=== PATIENT | female | born 1995 | race Hispanic/Latino ===

== ENCOUNTER 2021-04-03 11:51 | Inpatient (IN) | payer OTHER ==
[~2021-04-03] VITALS: Ht 160 cm; Wt 66.2 kg
--- NOTE | 2021-04-04 04:22 | NUR ---
0055 04-04-2021 COVID swab obtained and taken to lab.
--- NOTE | 2021-04-04 10:21 | PR ---
[facility] [address] [facility] [place], [place] [address] Signed Progress Notes IP Datetime Report Generated by CPN: 04/04/2021 10:21 PROGRESS NOTES: [id number] Impression: Normal Progression of Labor Procedures: Artificial ROM Plan: Continue Present Management; Anticipate Vaginal Delivery VITAL SIGNS: [id number] Vital Signs: Reviewed; Within Normal Limits EXAM: [id number] Dilatation: 10.0 Effacement: 100 Station: 0 MEMBRANES: [id number] Membranes Status: Ruptured ROM Note: By Dr. Olson Comments: Comfortable with Epidural. Will start pushing soon. FETUS A: [id number] FHR Baseline: 145 Variability: Moderate 6-25bpm Accelerations: 15X15 FETUS B: [id number] Signing Physician: Yuri Olson MD Copies: ~ *Electronically Signed* 04/04/21 1021 YURI OLSON MD PATIENT NAME: SHARRI SALAZAR PROGRESS NOTE DATE OF : 95 PHYSICIAN: YURI OLSON MD RPT #: [id number] REPORT IS CONFIDENTIAL AND NOT TO BE RELEASED WITHOUT AUTHORIZATION
--- NOTE | 2021-04-04 18:37 | PR ---
[facility] [address] [facility] [place], [place] [address] Signed PP Progress Notes Datetime Report Generated by CPN: 04/04/2021 18:36 SUBJECTIVE: [id number] Pain: Within Normal Limits Nausea/Vomiting: Denies Vital Signs: [id number] Vital Signs: Reviewed; Within Normal Limits Notable Details: PT slightly high, PT normal Hgb/Hct = 7.8/24.8 before transfusion Abdomen/Uterus: Normal Lochia: Normal Extremities: Normal IMPRESSION/PLAN/PROCEDURES: [id number] Impression: Normal Progression Other Impression: PP Hemorrhage Plan: Continue Present Management Procedures: None Progress Notes: Feeling much better, minimal vaginal bleeding. Received 1 unit PRBC's this afternoon. Will recheck CBC, PT, PTT, Fibrinogen tomorrow morning. Discussed symptoms, treatmetn, follow-up with patient. Questions answered. Signing Physician: Luis Olson MD Copies: ~ *Electronically Signed* 04/04/21 1836 LUIS OLSON MD PATIENT NAME: YANETH SALAZARICA PROGRESS NOTE DATE OF : 95 PHYSICIAN: LUIS OLSON MD RPT #: [id number] REPORT IS CONFIDENTIAL AND NOT TO BE RELEASED WITHOUT AUTHORIZATION
--- NOTE | 2021-04-05 12:20 | PR ---
[facility] [address] [place], [place] [address] Signed PP Progress Notes Datetime Report Generated by CPN: 04/05/2021 12:20 SUBJECTIVE: [id number] Pain: Within Normal Limits Nausea/Vomiting: Denies Bowel Movement: No Vital Signs: [id number] Vital Signs: Reviewed; Within Normal Limits Notable Details: PT slightly high, PT normal Hgb/Hct = 7.8/24.8 before transfusion Cardiovascular: Normal Respiratory: Normal Abdomen/Uterus: Normal Lochia: Normal CVA Tenderness: Normal Extremities: Normal Incision: Not Applicable Progress: Normal Exam Comments: Fundus firm U-2 Nontender IMPRESSION/PLAN/PROCEDURES: [id number] Impression: Normal Progression Other Impression: PP Hemorrhage Plan: Continue Present Management Procedures: None Other Procedures: s/p PRBC x 1 unit Progress Notes: Pt seen and examined. Doing well. Voiding and tolerating full diet. Dizziness w/ ambulation this morning. well. Lochia minimal. Hgb 7.4 after 1 u PRBC and pt reports feeling much better. Will slowly ambulate w/ assistanceand monitor bleeding closely, but anticipate normal recovery. Anticipate discharge home tomorrow. Signing Physician: Kathleen Singh DO Copies: ~ *Electronically Signed* 04/05/21 2560 KATHLEEN SINGH DO PATIENT NAME: SHARRI SALAZAR PROGRESS NOTE DATE OF : 95 PHYSICIAN: KATHLEEN SINGH DO RPT #: [id number] REPORT IS CONFIDENTIAL AND NOT TO BE RELEASED WITHOUT AUTHORIZATION
--- NOTE | 2021-04-06 08:47 | PR ---
[facility] [address] [place], [place] [address] Signed PP Progress Notes Datetime Report Generated by ELEAZAR: 04/06/2021 08:47 SUBJECTIVE: [id number] Pain: Within Normal Limits Nausea/Vomiting: Denies Flatus: Yes Bowel Movement: Yes Vital Signs: [id number] Vital Signs: Reviewed; Within Normal Limits Notable Details: PT slightly high, PT normal Hgb/Hct = 7.8/24.8 before transfusion Cardiovascular: Normal Respiratory: Normal Abdomen/Uterus: Normal Lochia: Normal CVA Tenderness: Normal Extremities: Normal Incision: Not Applicable Progress: Normal Exam Comments: Gen: NAD, sitting comfortably in bed Resp: no dyspnea, no retractions CV: RRR, radial pulses strong bilaterally, no pallor, capillary refill time < 1 second Abd: SNTND, FFBU Ext: no edema, neg Joanne's BL IMPRESSION/PLAN/PROCEDURES: [id number] Impression: Normal Progression Other Impression: PP Hemorrhage Plan: Continue Present Management Procedures: None Other Procedures: s/p PRBC x 1 unit Progress Notes: 26 yo PPD#2 s/p complicated by hemorrhage requiring transfusion 1 unit pRBC -VSS, asymptomatic, no dizziness/lightheadedness/headache/ shortness of breath. Hgb 7.4 following transfusion, repeat hgb this am is pending at this time -Otherwise progressing well : ambulating, voiding, tolerating regular diet, +flatus, +BM. Pumping and bottlefeeding baby due to nipple sensitivity, planning to transition to when nipple sensitivity resolved. -Requesting DC to home today, planning natural family planning for contraception. *Electronically Signed* 04/06/21846 MIGUEL A ALMAGUER DO PATIENT NAME: YANETH SALAZARICA PROGRESS NOTE DATE OF : 95 PHYSICIAN: MIGUEL A ALMAGUER DO RPT #: [id number] REPORT IS CONFIDENTIAL AND NOT TO BE RELEASED WITHOUT AUTHORIZATION [address] [place], [place] [address] Signed Anticipate DC today, pending hemogram results. Discussed possibility of additional blood transfusion or iron infusion. Signing Physician: Miguel A Almaguer DO Copies: ~ *Electronically Signed* 04/06/21846 MIGUEL A ALMAGUER DO PATIENT NAME: MARJORIE MEJIASHARRI PROGRESS NOTE DATE OF : 95 PHYSICIAN: MIGUEL A ALMAGUER DO [facility] #: [id number] REPORT IS CONFIDENTIAL AND NOT TO BE RELEASED WITHOUT AUTHORIZATION
== END 2021-04-06 12:45 | disposition home or self-care (01) | DRG 806 ==
LOC: FBC 04-04 00:19
PROVIDERS: ADMIT General Practice; ATTEND General Practice
PROC: 10E0XZZ Delivery of Products of Conception, External Approach (ICD-10-PCS; principal; 2021-04-04)
PROC: 0KQM0ZZ Repair Perineum Muscle, Open Approach (ICD-10-PCS; 2021-04-04)
PROC: 10907ZC Drainage of Amniotic Fluid, Therapeutic from Products of Conception, Via Natural or Artificial Opening (ICD-10-PCS; 2021-04-04)
PROC: 3E0DXGC Introduction of Other Therapeutic Substance into Mouth and Pharynx, External Approach (ICD-10-PCS; 2021-04-04)
PROC: 3E0R3BZ Introduction of Anesthetic Agent into Spinal Canal, Percutaneous Approach (ICD-10-PCS; 2021-04-04)
PROC: 00HU33Z Insertion of Infusion Device into Spinal Canal, Percutaneous Approach (ICD-10-PCS; 2021-04-04)
PROC: 30233N1 Transfusion of Nonautologous Red Blood Cells into Peripheral Vein, Percutaneous Approach (ICD-10-PCS; 2021-04-04)
DX: O99.02 Anemia complicating childbirth (principal); D62 Acute posthemorrhagic anemia; Z37.0 Single live birth; O72.1 Other immediate postpartum hemorrhage; O70.1 Second degree perineal laceration during delivery; Z3A.39 39 weeks gestation of pregnancy
CPT/HCPCS: 01960; 36430; 85025; 85027; 85384; 85610; 85730; 86850; 86900; 86901; 86922; A9270; C9803; J2590; J2795; J3010; J7121; P9016; U0003

== ENCOUNTER 2022-12-15 09:28 | Inpatient (IN) | payer OTHER ==
[~2022-12-15] VITALS: Ht 160 cm; Wt 65.8 kg
[2022-12-15 10:41] VITALS: BP 107/62
--- NOTE | 2022-12-15 16:34 | PR ---
[facility] [address] [facility] [place], [place] [address] Signed Progress Notes IP Datetime Report Generated by CPN: 12/15/2022 16:34 PROGRESS NOTES: [id number] Procedures: Epidural Placement Plan: Anesthesia Consult VITAL SIGNS: [id number] EXAM: [id number] Dilatation: 5.0 Effacement: 80 Station: -2 Contractions: acontractile MEMBRANES: [id number] Nitrazine: Positive Comments: Breathing through contractions, requesting epidural, anesthesia here Pitocin discontinued, anesthesia present for epidural FETUS A: [id number] FHR Baseline: 135 Variability: Moderate 6-25bpm Accelerations: 15X15 Decelerations: None FHR Category: Category I Presentation: Vertex Comments on Fetus A: No evidence of acidemia FETUS B: [id number] Signing Physician: Miguel A Almaguer DO Copies: ~ *Electronically Signed* 12/15/22 1634 MIGUEL A ALMAGUER DO PATIENT NAME: SHARRI OROZCO PROGRESS NOTE DATE OF : 95 PHYSICIAN: MIGUEL A ALMAGUER DO [facility] #: [id number] REPORT IS CONFIDENTIAL AND NOT TO BE RELEASED WITHOUT AUTHORIZATION
--- NOTE | 2022-12-15 18:34 | PR ---
[facility] [address] [place], [place] [address] Signed Progress Notes IP Datetime Report Generated by CPN: 12/15/2022 18:34 PROGRESS NOTES: [id number] Impression: Normal Progression of Labor; Reassuring Heart Rate Procedures: Epidural Placement Plan: Anesthesia Consult VITAL SIGNS: [id number] EXAM: [id number] Dilatation: 8.0 Effacement: 95 Station: -1 Contractions: acontractile MEMBRANES: [id number] Nitrazine: Positive Membranes Status: Ruptured Comments: Pt comfortable with epidural, denies feeling contractions. Complaining of nausea, symptomatic hypotension responsive to ephedrine. Forebag ruptured without difficulty yielding clear blood-stained fluid. head well-applied to cervix, anticipate . FETUS A: [id number] FHR Baseline: 135 Variability: Moderate 6-25bpm Accelerations: 15X15 Decelerations: None FHR Category: Category I Presentation: Vertex Comments on Fetus A: No evidence of acidemia FETUS B: [id number] Signing Physician: Miguel A Almaguer DO Copies: ~ *Electronically Signed* 12/15/22 1834 MIGUEL A ALMAGUER DO PATIENT NAME: SHARRI OROZCO PROGRESS NOTE DATE OF : 95 PHYSICIAN: MIGUEL A ALMAGUER DO [facility] #: [id number] REPORT IS CONFIDENTIAL AND NOT TO BE RELEASED WITHOUT AUTHORIZATION
--- NOTE | 2022-12-16 11:11 | PR ---
[facility] [address] [place], [place] [address] Signed PP Progress Notes Datetime Report Generated by CPWendie: 12/16/2022 11:11 SUBJECTIVE: [id number] Pain: Within Normal Limits Nausea/Vomiting: Denies Vital Signs: [id number] Vital Signs: Reviewed; Within Normal Limits Cardiovascular: Normal Respiratory: Normal Abdomen/Uterus: Normal Lochia: Normal Extremities: Normal Progress: Normal Exam Comments: Pt resting in bed RRR No dyspnea/ retractions Abd SNTND, FFBU Ext: trace edema, neg Joanne's BL IMPRESSION/PLAN/PROCEDURES: [id number] Impression: Normal Progression Plan: Continue Present Management Other Procedures: Iron infusion Progress Notes: Pt is a 27 yo PPD#1 s/p Acute blood loss anemia on chronic anemia of , hemorrhage of 2000mL -source: vaginal laceration, repair complicated by profound edema -received TXA 1g immediately after cord cut due to h/o PPH, then additional 30 units pitocin -received 2 units pRBC -initial fibrinogen 275, other coags within normal limits and hgb 7.1 at time of hemorrhage -this am, fibrinogen 303, PT slightly elevated at 14.7 but other coags WNL -VSS this am, pt reports ear ringing/ near syncope with attempt at ambulation -UOP adequate last night and today, martinez catheter still in place -plan: IV iron infusion today, continue attempts at ambulation with assistance Anticipate DC to home tomorrow Signing Physician: Miguel A Almaguer DO *Electronically Signed* 12/16/22 1111 MIGUEL A ALMAGUER DO PATIENT NAME: YANETH OROZCOICA PROGRESS NOTE DATE OF : 95 PHYSICIAN: MIGUEL A ALMAGUER DO RPT #: [id number] REPORT IS CONFIDENTIAL AND NOT TO BE RELEASED WITHOUT AUTHORIZATION [address] [place] [address] Signed Copies: ~ *Electronically Signed* 12/16/22 1111 MIGUEL A ALMAGUER DO PATIENT NAME: YANETH OROZCOICA PROGRESS NOTE DATE OF : 95 PHYSICIAN: MIGUEL A ALMAGUER DO RPT #: [id number] REPORT IS CONFIDENTIAL AND NOT TO BE RELEASED WITHOUT AUTHORIZATION
--- NOTE | 2022-12-17 10:19 | PR ---
[facility] [address] [place], [place] [address] Signed PP Progress Notes Datetime Report Generated by CPWendie: 12/17/2022 10:19 SUBJECTIVE: [id number] Pain: Within Normal Limits Nausea/Vomiting: Denies Flatus: Yes Vital Signs: [id number] Vital Signs: Reviewed; Within Normal Limits Cardiovascular: Normal Respiratory: Normal Abdomen/Uterus: Normal Lochia: Normal Extremities: Normal Progress: Normal Exam Comments: Lying in bed RRR No dyspnea, retractions Abd SNTND, FFBU Ext: trace edema, neg Joanne's BL, SCDs in place IMPRESSION/PLAN/PROCEDURES: [id number] Impression: Pain Plan: Continue Present Management Other Plans: DC martinez Other Procedures: Iron infusion Progress Notes: 27 yo PPD#2 s/p complicated by PPH 2000mL -pt reports dizziness with attempts at ambulation, has not tried sitting at chair at bedside -stressed importance of attempts at ambulation and need to discontinue martinez today -anticipate DC to home tomorrow, pt not yet ambulating or voiding. Signing Physician: Miguel A Almaguer DO Copies: ~ *Electronically Signed* 12/17/22 1019 MIGUEL A ALMAGUER DO PATIENT NAME: SHARRI OROZCO PROGRESS NOTE DATE OF : 95 PHYSICIAN: MIGUEL A ALMAGUER DO RPT #: [id number] REPORT IS CONFIDENTIAL AND NOT TO BE RELEASED WITHOUT AUTHORIZATION
--- NOTE | 2022-12-18 09:21 | PR ---
[facility] [address] [facility] [place], [place] [address] Signed PP Progress Notes Datetime Report Generated by CPN: 12/18/2022 09:21 SUBJECTIVE: [id number] Pain: Within Normal Limits Nausea/Vomiting: Denies Flatus: Yes Bowel Movement: No Vital Signs: [id number] Vital Signs: Reviewed; Within Normal Limits Cardiovascular: Normal Respiratory: Normal Abdomen/Uterus: Normal Lochia: Normal Extremities: Normal Progress: Normal Exam Comments: NAD, lying in bed FFBU Extremities: trace edema IMPRESSION/PLAN/PROCEDURES: [id number] Impression: Normal Progression Plan: Discharge Other Plans: DC martinez Other Procedures: Iron infusion Progress Notes: PPD#3 s/p complicated by PPH -s/p 2 units pRBC, IV iron infusion, home on oral iron -ambulating, voiding, tolerating regular diet -planning partner vasectomy for contraception - baby Anticipate DC to home today. Signing Physician: Miguel A Almaguer DO Copies: ~ *Electronically Signed* 12/18/22920 MIGUEL A ALMAGUER DO PATIENT NAME: SHARRI OROZCO PROGRESS NOTE DATE OF : 95 PHYSICIAN: MIGUEL A ALMAGUER DO RPT #: [id number] REPORT IS CONFIDENTIAL AND NOT TO BE RELEASED WITHOUT AUTHORIZATION
--- NOTE | 2022-12-18 10:20 | NUR ---
PT WAS IN BED RESTING. FATHER WAS HOLDING BABY. BOTH APPEARED RELAXED AND HAPPY. BABY WAS RESTING CONTENTEDLY IN FATHER'S ARMS. PT ACCEPTED OFFER TO HAVE CERTIFIED SURGICAL ASSISTANT VISIT AFTER MASS. I PLACED SCIENTOLOGY PT LIST IN SACRISTRY WITH A NOTE THAT PT HAD REQESTED VISIT.
== END 2022-12-18 14:05 | disposition home or self-care (01) | DRG 806 ==
LOC: FBCO 09:28 → FBC 10:08
PROVIDERS: ADMIT Obstetrics & Gynecology; ATTEND Obstetrics & Gynecology
PROC: 10E0XZZ Delivery of Products of Conception, External Approach (ICD-10-PCS; principal; 2022-12-15)
PROC: 30233N1 Transfusion of Nonautologous Red Blood Cells into Peripheral Vein, Percutaneous Approach (ICD-10-PCS; 2022-12-15)
PROC: 00HU33Z Insertion of Infusion Device into Spinal Canal, Percutaneous Approach (ICD-10-PCS; 2022-12-15)
PROC: 3E0R3BZ Introduction of Anesthetic Agent into Spinal Canal, Percutaneous Approach (ICD-10-PCS; 2022-12-15)
PROC: 0KQM0ZZ Repair Perineum Muscle, Open Approach (ICD-10-PCS; 2022-12-15)
DX: O42.92 Full-term premature rupture of membranes, unspecified as to length of time between rupture and onset of labor (principal); O76 Abnormality in fetal heart rate and rhythm complicating labor and delivery; O70.1 Second degree perineal laceration during delivery; O72.1 Other immediate postpartum hemorrhage; O99.02 Anemia complicating childbirth; D62 Acute posthemorrhagic anemia; O48.0 Post-term pregnancy; Z3A.40 40 weeks gestation of pregnancy; Z37.0 Single live birth
CPT/HCPCS: 01960; 36415; 36430; 84112; 85025; 85027; 85060; 85384; 85610; 85730; 86850; 86900; 86901; 86922; A9270; J2590; J2795; J7121; P9016; Q0138